=== PATIENT | female | born 1965 | race Caucasian/White ===

== ENCOUNTER 2019-05-12 09:51 | Inpatient (IN) | payer OTHER ==
[~2019-05-12] VITALS: Ht 152.4 cm; Wt 56.2 kg
[~2019-05-12 09:51] MED LIST: ALLERCLEAR10 MG PO; AMBIEN 5 MG TABL5 M1 PO; AMBIEN5 MG PO; BUSPIRONE HCL5 MG PO; CYMBALTA60 MG PO; FLEXERIL; HYDRALAZINE 2525 M1 GT; PROVENTIL HFA6.7 G1 INH; SEROQUEL 50 MG50 M1 NG; TRAZODONE HCL50 MG PO; ULTRAM 50MG TAB50 MG; XOPENEX HFA15 GM IH; ZANAFLEX4 MG PO
[2019-05-12 09:53] VITALS: BP 151/87
--- NOTE | 2019-05-12 10:02 | NUR ---
SEIZURE PADS IN PLACE.
[2019-05-12 10:14] LABS: HEMATOCRIT 40.8 % (37.0-47.0); HEMOGLOBIN 13.7 gm/dL (12.0-15.0); MCH 32.3 pg (26.0-34.0); MCHC 33.5 g/dL (28.0-37.0); MCV 96.3 fL (80.0-100.0); MPV 9.3 fl. (7.2-11.1); NUCLEATED RBCS 0 /100WBC; PLATELET COUNT* 295 thou/uL (150-400); RBC 4.24 mil/uL (4.20-5.00); RDW-CV 13.9 % (10.5-14.5); WBC 12.1 thou/uL (4.0-11.0)
[2019-05-12 10:22] LABS: APTT 23.4 Seconds (25.0-31.3); CALCIUM 9.1 mg/dL (8.5-10.1); PROTIME 10.7 Seconds (9.20-11.50)
[2019-05-12 10:25] LABS: POTASSIUM 2.9 mmol/L (3.5-5.1)
[2019-05-12 10:30] LABS: SALICYLATE 4.9 mg/dL (2.8-20.0)
[2019-05-12 10:33] LABS: ACETAMINOPHEN < 2 ug/mL (10-30); ALCOHOL < 10 mg/dL (<10)
[2019-05-12 10:37] LABS: ALBUMIN 3.9 g/dL (3.4-5.0); CK-MB MASS 0.8 ng/mL (<0.5-3.6); TOTAL BILIRUBIN 0.2 mg/dL (<0.1-1.0); TOTAL PROTEIN 7.4 g/dL (6.4-8.2)
[2019-05-12 11:35] LABS: URINE BILIRUBIN NEGATIVE (Negative); URINE BLOOD NEGATIVE (Negative); URINE CLARITY CLEAR; URINE COLOR YELLOW; URINE GLUCOSE-RANDOM NEGATIVE (Negative); URINE KETONES NEGATIVE (Negative); URINE LEUKOCYTES-REFLEX NEGATIVE (Negative); URINE NITRITE-REFLEX NEGATIVE (Negative); URINE PROTEIN NEGATIVE (Negative); URINE SPECIFIC GRAVITY >= 1.030 (1.005-1.030); URINE UROBILINOGEN 0.2 E.U./dl (0.2-1.0)
[2019-05-12 11:42] LABS: ABSOLUTE EOSINOPHILS 0.8 thou/uL (0.0-0.7); ABSOLUTE LYMPHOCYTES 7.3 thou/uL (0.8-5.3); ATYPICAL LYMPHS 10 %
[2019-05-12 11:43] LABS: PLATELET ESTIMATE ADEQUATE
[2019-05-12 11:48] LABS: AMP/METHAMP Negative (Negative); BARBITURATES Negative (Negative); BENZODIAZEPINES Negative (Negative); COCAINE Negative (Negative); METHADONE Negative (Negative); OPIATES Negative (Negative); PCP Negative (Negative); THC POSITIVE (Negative)
--- NOTE | 2019-05-12 12:45 | NUR ---
REC'D REPORT FROM ED RN. PATIENT ARRIVED TO UNIT AT 1310 VIA GURNEY AND ED RN. OX4, ABLE TO COMMUNICATE NEEDS TO STAFF. ASSESSMENT COMPLETE, VS OBTAINED. SEIZURE PRECAUTIONS IN PLACE. EDUCATION GIVEN TO PATIENT R/T SEIZURE PRECAUTIONS, ORIENTATION TO ROOM/BED CONTROLS, UNIT ROUTINE. CALL LIGHT WITHIN REACH. HOURLY ROUNDING FOR SAFETY/NEEDS.
--- NOTE | 2019-05-12 12:52 | NUR ---
REPORT GIVEN TO MANJINDER NUNO WHO IS TO ASSUME PT CARE INPATIENT NURSE.
[2019-05-12 12:54] VITALS: BP 115/67
[2019-05-12 13:20] VITALS: BP 122/69
[2019-05-12 13:24] VITALS: BP 116/71
--- NOTE | 2019-05-12 14:34 | EKG ---
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[facility] : 1965 Requested By: Aureliano Mckinney Order Number: [id number] MD: Amanuel Coffey Measurements Intervals Wylie Rate: 82 P: 60 CO: 174 QRS: 62 QRSD: 92 T: -2 QT: 439 QTc: 513 Interpretive Statements Sinus rhythm artifact noted nonspecific st changes noted Prolonged QT interval No previous ECG available for comparison Electronically Signed On 05-12-2019 14:33:52 LINEN FOLDER by Amanuel Coffey [email or web address] <ELECTRONICALLY SIGNED> By: Amanuel Coffey MD, [facility] 05/12/19 1433 [id number] Amanuel Coffey MD, FACC /EPI
[2019-05-12 17:59] LABS: CALCIUM 8.2 mg/dL (8.5-10.1); CREATININE 0.8 mg/dL (0.6-1.3)
[2019-05-12 18:02] LABS: MAGNESIUM 1.8 mg/dL (1.8-2.4); PHOSPHORUS* 3.6 mg/dL (2.5-4.9)
[2019-05-12 18:03] LABS: POTASSIUM 3.9 mmol/L (3.5-5.1)
[2019-05-12 20:56] VITALS: BP 101/61
[2019-05-13] VITALS: BP 100/66
[2019-05-13 04:37] VITALS: BP 125/77
--- NOTE | 2019-05-13 09:08 | NUR ---
PT IS ABLE TO COMMUNICATE HER NEEDS TO STAFF WITH MINOR DIFFICULTY; SHE IS STILL SOMEWHAT DROWSY AND CONFUSED AT TIMES; MD HAS BEEN MADE AWARE. CURRENT PAIN MEDICATION REGIMEN HAS BEEN ADEQUATE FOR CONTROLLING HER PAIN DURING CHIEF SPECIALIST LEED. SEIZURE PRECAUTIONS MAINTAINED.
[2019-05-13 12:06] VITALS: BP 123/69
--- NOTE | 2019-05-13 13:07 | NUR ---
ASSUMED PT CARE AT 0800, AOX4, UP SBA, O2 SAT 90'S RA. TRACING SR ON TELE. PT COMPLAINS OF BACK PAIN, RELIVED BY REPOSITION. PT ON SEIZURE PRECAUTION. PT IV ACCESS INTACT, IVF INFUSSING ORDERED, PT ON ANTIBIOTIC. PT FEBRILE AT 1100, MEDS GIVEN PER MAR, REASSESSED TEMP, PT NOW AFEBRILE. PT HOURLY ROUNDING, CALL LIGHT WITHIN REACH, WILL CONTINUE TO MONITOR.
[2019-05-13 17:12] VITALS: BP 110/64
[2019-05-13 20:18] VITALS: BP 109/67
[2019-05-14 00:06] VITALS: BP 112/69
[2019-05-14 04:24] VITALS: BP 146/86
--- NOTE | 2019-05-14 07:57 | NUR ---
PT IS ABLE TO COMMUNICATE HER NEEDS TO STAFF EFFECTIVELY. CURRENT PAIN MEDICATION REGIMEN HAS BEEN ADEQUATE FOR CONTROLLING HER PAIN UP TO THIS TIME. SEIZURE PRECAUTIONS MAINTAINED. POSSIBLE DISCHARGE LATER TODAY.
[2019-05-14 08:00] VITALS: BP 126/62
--- NOTE | 2019-05-14 11:29 | NUR ---
ASSUMED PT CARE AT 0800, AOX4, UP AD LETTY, O2 SAT 90'S RA. TRACING SINUS RHYTHM ON TELE. PT COMPLAINS OF BACK DISCOMFORT. REPOSITION SELF. PT FOR DISCHARGE. VSS, AM ASSESSMENT CHARTED, MEDS GIVEN PER MAR, CALL LIGHT WITHIN REACH, WILL CONTINUE TO MONITOR.
[2019-05-14 12:19] VITALS: BP 127/75
[2019-05-14] MEDS ORDERED: KEFLEX500 M1 PO (13:46)
[2019-05-14] MEDS ORDERED: NEURONTIN 300300 M1 PO (13:46)
[2019-05-14] MEDS ORDERED: DEPAKOTE ER250 MG PO (13:46)
[2019-05-14] MEDS ORDERED: DEPAKOTE ER500 M1 PO (13:56)
[2019-05-14 14:48] VITALS: BP 127/75
--- NOTE | 2019-05-14 15:54 | NUR ---
DISCHARGED PLAN DISCUSSED WITH THE PT. MEDICATION PACKET GIVEN. PT MEDS SEND TO PHARMACY PER HOSPITALIST. IV, TELE REMOVED. ALL BELONGINGS PACKED AND CHECKED. LEFT THE UNIT AMBULATORY 1510.
== END 2019-05-14 15:05 | disposition home or self-care (01) | DRG 194 ==
LOC: M.ERS 09:51 → M.TBA-ER 12:16 → M.2W 13:10
PROVIDERS: Family Medicine; ADMIT Internal Medicine
DX: J18.9 Pneumonia, unspecified organism (principal); J44.0 Chronic obstructive pulmonary disease with (acute) lower respiratory infection; F32.9 Major depressive disorder, single episode, unspecified; F41.9 Anxiety disorder, unspecified; E87.6 Hypokalemia; G89.29 Other chronic pain; M54.9 Dorsalgia, unspecified; D72.829 Elevated white blood cell count, unspecified; G43.909 Migraine, unspecified, not intractable, without status migrainosus; T40.4X5A Adverse effect of other synthetic narcotics, initial encounter; Y92.89 Other specified places as the place of occurrence of the external cause; Z88.8 Allergy status to other drugs, medicaments and biological substances; T40.7X5A Adverse effect of cannabis (derivatives), initial encounter; Z90.81 Acquired absence of spleen; Z90.49 Acquired absence of other specified parts of digestive tract; Z86.73 Personal history of transient ischemic attack (TIA), and cerebral infarction without residual deficits